=== PATIENT | female | born 1965 | race Asian ===

== ENCOUNTER 2019-06-04 09:11 | Emergency (ER) | payer OTHER ==
[~2019-06-04] VITALS: Ht 167.6 cm; Wt 67.6 kg
[2019-06-04 10:55] VITALS: BP 124/82
== END 2019-06-04 10:55 | disposition home or self-care (01) ==
LOC: ED 09:11
DX: K59.00 Constipation, unspecified (principal); Z98.890 Other specified postprocedural states
CPT/HCPCS: J1885